=== PATIENT | female | born 1990 | race Caucasian/White ===

== ENCOUNTER → 2017-03-27 | Outpatient (CLI) | payer OTHER | END | disposition home or self-care (01) | LOC: C.LABSPEC 16:32 | PROVIDERS: ATTEND Dermatology | DX: B35.4 Tinea corporis (principal) ==

== ENCOUNTER 2023-03-02 18:24 | Inpatient (IN) ==
[2023-03-02] MEDS ORDERED: LIDOCAINE 1% LOCAL 20 ML VIAL INFIL PRN (18:49)
[2023-03-02] MEDS ORDERED: OXYTOCIN 30 UNITS/500 ML BAG IV PRN (18:49)
[2023-03-02] MEDS ORDERED: Patient's HEIGHT &/or WEIGHT Needed SCH (19:00)
[2023-03-02] MEDS: LACTATED RINGER'S 1,000 ML IV PRN ×2 (19:03→23:06)
[2023-03-02] MEDS ORDERED: ePHEDrine sulfate 50 MG/ML AMP ONE (19:10)
[2023-03-02] MEDS ORDERED: SODIUM CHLORIDE 0.9% PF INJ 10 ML VIAL ONE (19:10)
[2023-03-02] MEDS ORDERED: LIDOCAINE 2%/EPINEPHRINE 1:200,000 20 ML PF ONE (19:10)
[2023-03-02] MEDS ORDERED: fentaNYL 2MCG/ML ROPIVACAINE 1.25MG/ML 100 ML BAG EPI ONE (19:10)
[2023-03-02] MEDS ORDERED: fentaNYL citrate PF 100 MCG/2 ML VIAL ONE (19:10)
[2023-03-02] MEDS ORDERED: BUPIVACAINE 0.25% PF 30 ML VIAL ONE (19:10)
[2023-03-02] MEDS ORDERED: CALCIUM CARBONATE 500 MG CHEWABLE TAB PO PRN (19:23)
[2023-03-02 19:35] LABS: Hematocrit (blood only) 35.1 % (37.0-47.0); Hemoglobin 12.3 g/dl (12.0-16.0); Mean Corpuscular Hemoglobin 31.8 pg (25.0-34.0); Mean Corpuscular Volume 90.7 fL (80.0-100.0); Platelet Count 175 K/uL (130-400); RDW Coefficient of Variation 12.9 % (11.5-14.5); RDW Standard Deviation 42.5 fL (36.4-46.3); Red Blood Count 3.87 M/uL (4.20-5.40); White Blood Count 10.41 K/ul (4.8-10.8)
--- NOTE | 2023-03-02 19:52 | History & Physical Report ---
Date of Service March 02, 2023 Assessment & Plan Admission and Anticipated Discharge Date Admission Date: March 02, 2023 History of Present Illness Chief Complaint: onset of labor at term Primary Care Provider: NO PCP 32 F P0000 at 40.4 weeks admitted in labor. GBS is negative. 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 Beliefs That Will Affect Care: None marital status: Current Living Situation: Spouse Other Information That Helps Us Care for You: No Feels Safe at Home: Yes Safety Concerns: Feels Safe At This Time Assistive Devices: Contacts 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 Review of Systems All systems reviewed & are unremarkable except as noted in HPI & below Physical Exam Constitutional: WD/WN, vitals as above Eyes: PERRL, conjunctivae normal, anicteric sclerae Respiratory: normal respiratory effort, lungs clear to auscultation Cardiovascular: RRR, no murmur, no edema Gastrointestinal (Abdomen): Inspection/Auscultation: abdomen normal to inspection Musculoskeletal: Extremities: extremities normal to inspection Skin: no rashes, warm and dry Neurologic: patellar DTR's 2+ bilat, sensation intact Psychiatric: A+Ox3, euthymic affect Genitourinary: Manual OB Exam: + cervical dilation 3 cm, + cervical effacement 80% and + station -1 OB Exam Monitor Tracing: + external FHT monitor used, + external uterine monitor used, + category I and + normal FHT variability Results & Data Vital Signs (Past 12 Hours) Vital Signs Temp Pulse Resp BP 03/02/23 18:57 36.5 C 55 L 18 105/62 03/02/23 18:32 20 03/02/23 18:32 36.5 C 20 03/02/23 18:33 55 L 105/62 Laboratory Results Laboratory Results - last 72 hr 03/02/23 19:14 WBC 10.41 RBC 3.87 L Hgb 12.3 Hct 35.1 L MCV 90.7 MCH 31.8 MCHC 35.0 RDW Std Deviation 42.5 RDW Coeff of Eric 12.9 Plt Count 175 MPV 11.0 Code Status & VTE Plan VTE Prophylaxis Plan VTE Prophylaxis will be ordered: No Reason for no VTE drug order: Treatment not indicated Monitoring External Monitor Cat 1
--- NOTE | 2023-03-02 20:59 | Anesthesiology Consultation ---
Date of Service March 02, 2023 Assessment & Plan Chart Review Chart Review: Acceptable Risk for Labor Epidural Consults Requested none History Height/Weight Height: 5 ft 10 in Weight: 81.193 kg Allergies Allergy/AdvReac Type Severity Reaction Status Date / Time No Known Allergies Allergy Unverified 03/02/23 18:39 Medications Home Medications Medication Instructions Recorded Confirmed Last Taken vit no.95-ferrous 1 tab PO DAILY 03/02/23 03/02/23 03/02/23 08:30 fumarate 28 mg-folic acid 800 mcg tablet () Active Medications Generic Name Dose Route Start Last Admin Trade Name Freq PRN Reason Stop Dose Admin Calcium Carbonate 1,500 mg 03/02/23 19:23 03/02/23 19:38 Calcium Carbonate 500 Mg Chewable Tab PO 04/01/23 19:22 1,500 mg Q2HWA PRN Administration Indigestion Lactated Ringer's 1,000 mls @ 125 mls/hr 03/02/23 18:49 03/02/23 19:33 Lr IV 03/04/23 18:48 125 mls/hr .Q8H PRN Infusion L&D Protocol Protocol Past Medical History Medical History Antepartum anemia Past Surgical History Surgical History [place] teeth removed Social History Smoking Status: Never smoker Hx Alcohol Use: No Hx Substance Use: No Physical Exam Vital Signs Last Vital Signs Temp 36.5 C 03/02/23 18:57 Pulse 64 03/02/23 20:56 Resp 18 03/02/23 18:57 BP 116/72 03/02/23 20:56 Pulse Ox 100 03/02/23 20:54 Testing Laboratory Results 03/02/23 19:14
[2023-03-02] MEDS ORDERED: LIDOCAINE 2% MPF LOCAL 5 ML VIAL EPI PRN (21:00)
[2023-03-02] MEDS ORDERED: BUPIVACAINE 0.25% PF 30 ML VIAL EPI STA (21:00)
[2023-03-02] MEDS ORDERED: fentaNYL citrate PF 100 MCG/2 ML VIAL EPI STA (21:00)
[2023-03-02] MEDS ORDERED: SODIUM CHLORIDE 0.9% PF INJ 10 ML VIAL EPI PRN (21:00)
[2023-03-02] MEDS ORDERED: fentaNYL citrate PF 100 MCG/2 ML VIAL EPI PRN (21:00)
[2023-03-02] MEDS ORDERED: NALBUPHINE HCL INJ 10 MG/ML AMP IV PRN (21:00)
[2023-03-02] MEDS ORDERED: BUPIVACAINE 0.25% PF 30 ML VIAL EPI PRN (21:00)
[2023-03-02] MEDS ORDERED: NALOXONE HCL 1 MG in SODIUM CHLORIDE 0.9% 1000ML 1,000 ML IV PRN (21:00)
[2023-03-02] MEDS ORDERED: ROPIVACAINE 0.5% PF 5 MG/ML 20 ML VIAL EPI PRN (21:00)
[2023-03-02] MEDS ORDERED: LIDOCAINE 2%/EPINEPHRINE 1:200,000 20 ML PF EPI STA (21:00)
[2023-03-02] MEDS ORDERED: NALOXONE HCL 0.4 MG/1 ML VIAL/CARP IV PRN (21:00)
[2023-03-02] MEDS ORDERED: ePHEDrine sulfate 50 MG/ML AMP IV PRN (21:00)
[2023-03-02] MEDS ORDERED: SODIUM CHLORIDE 0.9% PF INJ 10 ML VIAL EPI STA (21:00)
[2023-03-02] MEDS ORDERED: diphenhydrAMINE 50 MG/ML VIAL IV PRN (21:00)
[2023-03-02] MEDS ORDERED: fentaNYL 2MCG/ML ROPIVACAINE 1.25MG/ML 100 ML BAG EPI PRN (21:00)
[2023-03-03] MEDS ORDERED: HYDROCORTISONE ACETATE 25 MG SUPP PR PRN (01:37)
[2023-03-03] MEDS ORDERED: OXYTOCIN 30 UNITS/500 ML BAG IV PRN (01:37)
[2023-03-03] MEDS ORDERED: DIPHTHERIA/TETANUS/PERTUSSIS Vaccine (Tdap, Age 7+yrs) 0.5mL SYR/VL IM ONE (01:37)
[2023-03-03] MEDS ORDERED: BENZOCAINE 20% SPRY 85 APPLN/85 GM CAN EXT PRN (01:37)
[2023-03-03] MEDS ORDERED: ACETAMINOPHEN 325 MG TAB PO PRN (01:37)
--- NOTE | 2023-03-03 01:40 | Delivery Summary ---
Vaginal Delivery Summary Date of Service March 03, 2023 Vaginal Delivery Summary live female DEREK over intact perineum with delayed cord clamping and Apgars 8/9 weight pending. Cord blood obtained followed by spontaneous delivery of intact placenta. First degree tear repaired with 3/0 Vicryl suture. EBL 100 ml. Final sponge, needle and instrument count are correct. Mom and baby sable.
--- NOTE | 2023-03-03 07:12 | Anesthesia Procedure Note ---
Date of Service March 03, 2023 Anesthesia Post Epidural Note Vital Signs Vital Signs: Temp Pulse Resp BP Pulse Ox O2 Del Method 36.6 C 59 L 18 127/71 96 Room Air 03/03/23 04:28 03/03/23 04:28 03/03/23 04:28 03/03/23 04:28 03/03/23 04:28 03/03/23 04:28 Notes Mental Status: alert / awake / arousable Nausea / Vomiting: adequately controlled Pain: adequately controlled Airway Patency, RR, SpO2: stable & adequate BP & HR: stable & adequate Hydration State: stable & adequate Neuraxial Anesthesia: was administered and sensory block is resolving Anesthetic Complications: no major complications apparent and Pt Satisfied with anesthetic care Epidural: Removed without complications and With tip intact
[2023-03-03] MEDS: DOCUSATE SODIUM 100 MG CAP PO SCH ×2 (07:45→19:36)
[2023-03-03] MEDS: IBUPROFEN 600 MG TAB PO PRN ×3 (07:45→19:36)
[2023-03-03] MEDS: FERROUS SULFATE 325 MG TAB PO SCH (07:45)
[2023-03-03] MEDS: PRENATAL VITAMIN 1 TAB PO SCH (07:45)
[2023-03-03] MEDS ORDERED: NON-FORMULARY MEDICATION (Pnv Cmb#95-Ferrous Fumarate-Fa [Prenatal] 28 mg iron- 800 mcg Ta PO SCH (09:00)
[2023-03-04] MEDS: IBUPROFEN 600 MG TAB PO PRN ×2 (01:52→06:33)
[2023-03-04 07:20] LABS: Hematocrit (blood only) 32.8 % (37.0-47.0); Hemoglobin 11.2 g/dl (12.0-16.0); Mean Corpuscular Hemoglobin 31.3 pg (25.0-34.0); Mean Corpuscular Hgb Conc 34.1 g/dL (32.0-36.0); Mean Corpuscular Volume 91.6 fL (80.0-100.0); Mean Platelet Volume 10.7 fL (9.4-12.4); Platelet Count 164 K/uL (130-400); RDW Coefficient of Variation 13.3 % (11.5-14.5); RDW Standard Deviation 45.1 fL (36.4-46.3); Red Blood Count 3.58 M/uL (4.20-5.40); White Blood Count 11.74 K/ul (4.8-10.8)
[2023-03-04] MEDS: PRENATAL VITAMIN 1 TAB PO SCH (08:43)
[2023-03-04] MEDS: DOCUSATE SODIUM 100 MG CAP PO SCH (08:43)
[2023-03-04] MEDS: FERROUS SULFATE 325 MG TAB PO SCH (08:43)
--- NOTE | 2023-03-04 10:09 | Obstetrical Progress Note ---
Date of Service March 04, 2023 Assessment & Plan (1) Normal course: PPD #2 Pt doing well D/c home with instructions Subjective Ambulation: ambulating normally Voiding: no voiding problems Passing Gas:: Yes Diet Tolerance:: regular diet Lochia:: Small Feeding Type:: breast feeding Review of Systems All systems reviewed & are unremarkable except as noted in HPI & below Physical Exam Constitutional WD/WN, vitals as above well developed and well nourished Eyes PERRL, conjunctivae normal, anicteric sclerae Neck trachea midline, no thyromegaly Respiratory normal respiratory effort, lungs clear to auscultation Auscultation: no crackles, no rales and no wheezes Cardiovascular RRR, no murmur, no edema Gastrointestinal (Abdomen) normal bowel sounds, soft, nontender, no hepatosplenomegaly Uterus is below umbilicus Musculoskeletal no cyanosis or clubbing, extremities motor strength 5/5 Skin no rashes, warm and dry Neurologic patellar DTR's 2+ bilat, sensation intact Psychiatric A+Ox3, euthymic affect Genitourinary normal external appearance Results & Data Vital Signs (Past 12 Hours) Vital Signs Temp Pulse Resp BP Pulse Ox O2 Del Method 03/04/23 08:15 36.5 C 61 18 124/77 Room Air 03/04/23 01:45 36.6 C 60 16 119/72 97 Room Air
[2023-03-04] MEDS ORDERED: bisacodyL 5 MG TABEC PO SCH (20:00)
[2023-03-05] MEDS ORDERED: bisacodyL 10 MG SUPP PR PRN
== END 2023-03-04 12:10 | disposition home or self-care (01) | DRG 807 ==
LOC: OPB 18:24 → 4S1 18:29 → 4E2 03-03 04:37